=== PATIENT | male | born 1955 | race Caucasian/White ===

== ENCOUNTER → 2017-07-17 | Outpatient (CLI) | payer BC ==
[~2017-07-17] MED LIST: ALBUAER2 INH; CETI10TA84 PO; CHOL100010 PO; CYAN10005 PO; GLUC250C PO; OMEG10007 PO
--- NOTE | 2017-07-17 11:57 | DIAGNOSTIC IMAGING REPORT ---
TEMPORAL ORB/SELLA/TEMP W/O CLINICAL HISTORY: 62 years-old Male presenting with J30.9 Allergic rhinitis MYRINGITIS ON THE LEFT; OPAQUE; PLEASE CO. TECHNIQUE: Multidetector CT of the temporal bones was performed without the use of intravenous contrast. IV contrast: None. A dose lowering technique was used consistent with the principles of ALARA (as low as reasonably achievable). COMPARISON: None. CT DOSE (mGy.cm): The estimated cumulative dose is 566.78 mGy.cm. FINDINGS: [employer] topogram: Unremarkable. Minimal mucosal thickening in the maxillary sinuses. Remainder of paranasal sinuses clear. Mastoid air cells and middle ears clear. Normal appearance of the right tympanic membrane. Abnormal thickening and irregularity of the left tympanic membrane. Soft tissue thickening along the bony origin of the superior left external auditory canal. No osseous erosion or abnormal sclerosis. The scutum is intact. Middle ear ossicles intact. Visualized portion of the soft tissues of the head within normal limits. Orbits normal. Limited intracranial evaluation normal. IMPRESSION: Abnormal thickening of the left tympanic membrane with soft tissue thickening along the superior portion of the bony segment of the left external auditory canal. Correlate with physical exam. No osseous erosion or evidence of acute otitis media. Electronically signed by: Gustavo Wilkerson M.D. 07/17/2017 11:55 AM Dictated Date/Time: 07/17/2017 11:51 AM
== END | disposition home or self-care (01) ==
LOC: C.CTS 11:39
PROVIDERS: ATTEND Physician Assistant
DX: J30.9 Allergic rhinitis, unspecified (principal)